=== PATIENT | male | born 1995 | race American Indian/Alaskan Native ===

== ENCOUNTER 2018-11-22 18:30 | Emergency (ER) | payer BC ==
[2018-11-22 18:47] VITALS: BP 132/103
--- NOTE | 2018-11-22 18:49 | Emergency Department Report ---
Blank Doc - Documentation Documentation: This is a 23-year-old male that presents with mutiple "boils" with fever. HIV positive. This initial assessment/diagnostic orders/clinical plan/treatment(s) is/are subject to change based on patient's health status, clinical progression and re- assessment by fellow clinical providers in the ED. Further treatment and workup at subsequent clinical providers discretion. Patient/guardians urged not to elope from the ED as their condition may be serious if not clinically assessed and managed. Initial orders include: 1- Patient sent to [facility] for further evaluation and treatment 2- labs
[2018-11-22 19:32] LABS: Basophils % (Auto) 0.3 % (0.0-1.8); Eosinophils # (Auto) 0.1 K/mm3 (0.0-0.4); Eosinophils % (Auto) 0.6 % (0.0-4.3); Hematocrit 34.6 % (35.5-45.6); Hemoglobin 11.8 gm/dl (11.8-15.2); Lymphocytes # (Auto) 3.3 K/mm3 (1.2-5.4); Lymphocytes % (Auto) 27.8 % (13.4-35.0); Mean Corpuscular HGB Conc 34 % (32-34); Mean Corpuscular Volume 77 fl (84-94); Monocytes # (Auto) 1.6 K/mm3 (0.0-0.8); Monocytes % (Auto) 13.6 % (0.0-7.3); Platelet Count 385 K/mm3 (140-440); Red Blood Count 4.49 M/mm3 (3.65-5.03); Red Cell Distribution Width 16.4 % (13.2-15.2)
[2018-11-22 19:47] LABS: BUN/Creatinine Ratio 8; Blood Urea Nitrogen 7 mg/dL (9-20); Calcium 9.1 mg/dL (8.4-10.2); Hemolysis Index 3
--- NOTE | 2018-11-22 22:14 | Emergency Department Report ---
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 He also has a painful lesion to his right upper thigh, which she wanted evaluated as well. Reports no fever, chills, sweats. No chest pain or palpitations. No nausea, vomiting, but is HIV positive. No history of diabetes reported Home Medications: Previous Rx's Medication Instructions Recorded Last Taken Type Chlorhexidine Gluconate [Hibiclens] 10 ml TP BID #240 liquid 11/22/18 Unknown Rx Ketorolac [Toradol] 10 mg PO Q6H PRN #15 tablet 11/22/18 Unknown Rx Sulfamethoxazole/Trimethoprim 2 each PO BID #40 tablet 11/22/18 Unknown Rx [Bactrim DS TAB] cephALEXin [Keflex] 500 mg PO Q6HR #40 capsule 11/22/18 Unknown Rx Allergies/Adverse Reactions: Allergies Allergy/AdvReac Type Severity Reaction Status Date / Time No Known Allergies Allergy Unverified 11/22/18 18:36 ED Review of Systems ROS: Stated complaint: GENITALS AREA PAIN Other details as noted in HPI Comment: All other systems reviewed and negative ED Past Medical Hx - Past Medical History Previous Medical History?: Yes Hx HIV: Yes - Surgical History Past Surgical History?: Yes Hx Appendectomy: Yes - Social History Smoking Status: Never Smoker Substance Use Type: Alcohol, Marijuana - Medications Home Medications: Home Medications Medication Instructions Recorded Confirmed Last Taken Type Chlorhexidine Gluconate [Hibiclens] 10 ml TP BID #240 liquid 11/22/18 Unknown Rx Ketorolac [Toradol] 10 mg PO Q6H PRN #15 tablet 11/22/18 Unknown Rx Sulfamethoxazole/Trimethoprim 2 each PO BID #40 tablet 11/22/18 Unknown Rx [Bactrim DS TAB] cephALEXin [Keflex] 500 mg PO Q6HR #40 capsule 11/22/18 Unknown Rx ED Abscess Boil Physical Exam - Exam General: Vital signs noted. No distress. Alert and acting appropriately. Size: 2 cm Exam: Yes Tenderness (fluctuant lesion to the right upper thigh tender with palpation. No cellulitis noted. No drainage. Wound to the right lower lower abdomen is open and draining. It was expressed with bloody drainage scant amount of pus), Yes Normal Neurologic Exam, Yes Normal Circulation, No Fluctuanc e, No Surrounding Cellulites/Erythema, No Lymphangitis, No Crepitation, No Heart Murmur ED Course Vital Signs 11/22/18 18:38 Temperature 99.8 F H Pulse Rate 104 H Respiratory 18 Rate Blood Pressure 132/103 O2 Sat by Pulse 100 Oximetry Critical care attestation.: If time is entered above; I have spent that time in minutes in the direct care of this critically ill patient, excluding procedure time. ED Medical Decision Making - Lab Data Result diagrams: 11/22/18 19:24 11/22/18 19:24 - Medical Decision Making 23-year-old Male with past Medical History of HIV with 2 Wounds, One to His Abdomen and Right Thigh. Offered Him Incision and Drainage of the Right Thigh. He Opted to Treat It Conservatively with Hot Water Soaks Oral Anabiotic Syndrome. Pain Medication Will Have It Reevaluated in 2-3 Days As Needed. Understands the Importance of Completing His Antibiotic-Coated Regimen and Appropriate Follow-Up for Wound Healing ED Disposition Clinical Impression: Abscess Disposition: [id number] TO HOME OR SELFCARE Is pt being admited?: No Does the pt Need Aspirin: No Condition: Stable Instructions: Abscess (ED) Prescriptions: Sulfamethoxazole/Trimethoprim [Bactrim DS TAB] 2 each PO BID #40 tablet Chlorhexidine Gluconate [Hibiclens] 10 ml TP BID #240 liquid cephALEXin [Keflex] 500 mg PO Q6HR #40 capsule Ketorolac [Toradol] 10 mg PO Q6H PRN #15 tablet PRN Reason: Pain Referrals: TAO HARLEY MD [Primary Care Provider] - 3-5 Days
== END 2018-11-22 22:30 | disposition home or self-care (01) ==
LOC: ED 18:30
DX: L02.415 Cutaneous abscess of right lower limb (principal); F12.90 Cannabis use, unspecified, uncomplicated; Z90.49 Acquired absence of other specified parts of digestive tract; Z79.899 Other long term (current) drug therapy
CPT/HCPCS: 36415; 80048; 82140; 85025; 99283